=== PATIENT | male | born 1950 | race Caucasian/White ===

== ENCOUNTER 2020-04-07 17:05 | Emergency (ER) | payer OTHER, MEDICARE ==
[2020-04-07 17:17] VITALS: BP 171/82; PULSE 85; TEMP 99.3; BMI 29.8
[2020-04-07] MEDS ORDERED: CEPHALEXIN MONOHYDRATE 500 MG CAPSULE (UD) PO ONE (17:27)
[2020-04-07] MEDS ORDERED: SULFAMETHOXAZOLE/TRIMETHOPRIM 800MG/160MG D.S. TABLET PO ONE (17:27)
== END 2020-04-07 17:49 | disposition home or self-care (01) ==
LOC: FER 17:05
PROC: 0H9NXZZ Drainage of Left Foot Skin, External Approach (ICD-10-PCS; principal; 2020-04-07)
DX: L03.032 Cellulitis of left toe (principal)
CPT/HCPCS: 99284-25

== ENCOUNTER 2020-04-18 18:41 | Emergency (ER) | payer OTHER, MEDICARE ==
[2020-04-18 18:54] VITALS: BP 145/74; PULSE 79; TEMP 98; BMI 29.1
== END 2020-04-18 19:49 | disposition home or self-care (01) ==
LOC: FER 18:41
DX: L03.032 Cellulitis of left toe (principal)
CPT/HCPCS: 99282-25